=== PATIENT | female | born 1950 | race African-American/Black ===

== ENCOUNTER 2023-12-18 07:45 | Outpatient (CLI) | payer MEDICARE | END 2023-12-18 07:46 | disposition home or self-care (01) | LOC: CSHULT 07:45 | PROVIDERS: ATTEND Family Medicine | DX: I12.9 Hypertensive chronic kidney disease with stage 1 through stage 4 chronic kidney disease, or unspecified chronic kidney disease (principal); N18.9 Chronic kidney disease, unspecified; E11.22 Type 2 diabetes mellitus with diabetic chronic kidney disease | CPT/HCPCS: 76770; 93975 ==

== ENCOUNTER 2025-05-25 18:47 | Inpatient (IN) | payer MEDICARE ==
[~2025-05-25 18:47] MED LIST: Iopamidol 370 76% 100 ML VIAL ONE
[2025-05-25 19:21] LABS: #Basophils Less than 0.03 10x3/uL (0.0-0.2); #Eosinophils Less than 0.03 10x3/uL (0.0-0.5); #Monocytes 0.54 10x3/uL (0.0-1.1); #Neutrophils 4.19 10x3/uL (1.5-8.4); %Basophils 0.1 % (0.0-2.0); %Eosinophils 0.1 % (0.0-6.0); %Lymphocytes 34.8 % (18.0-47.0); %Monocytes 7.4 % (0.0-10.0); %Neutrophils 57.3 % (40.0-75.0); Hematocrit 35.0 % (34.9-44.5); Hemoglobin 11.7 g/dL (12.0-15.5); Mean Corpuscular Hemoglobin 27.3 pg (27.0-33.0); Mean Corpuscular Volume 81.6 fL (81.6-98.3); Platelet Count 210 10x3/uL (150-450); Red Blood Cell (RBC) Count 4.29 10x6/uL (3.90-5.03); White Blood Cell (WBC) Count 7.32 10x3/uL (3.5-10.5)
[2025-05-25 19:41] LABS: ALT (SGPT) 14 U/L (Less than 34); AST (SGOT) 30 U/L (11-34); Albumin 4.2 g/dL (3.1-4.5); Alkaline Phosphatase 174 U/L (40-110); Anion Gap 14 mmol/L (10-20); BUN (Urea Nitrogen) 24 mg/dL (9.8-20.1); Bilirubin, Total 0.3 mg/dL (0.3-1.2); Calc. Creatinine Clearance 0 mL/min (70-130); Calcium 9.7 mg/dL (7.8-10.44); Carbon Dioxide 21 mmol/L (23-31); Chloride 105 mmol/L (98-107); Globulin 4.5 g/dL (2.4-3.5); Glucose 116 mg/dL (83-110); Potassium 5.2 mmol/L (3.5-5.1); Sodium 135 mmol/L (136-145)
[2025-05-25 20:29] LABS: Troponin I Less than 0.010 ng/mL (< 0.028)
[2025-05-25 20:33] LABS: Glucose, Urine (Dipstick) Normal (Negative); Leukocyte Negative (Negative); Protein, Urine (Dipstick) 30 mg/dl (Neg-Trace); Specific Gravity, Urine 1.005 (1.005-1.030)
[2025-05-25 20:38] LABS: CAUTI Indications for Culture Dysuria,urgency,freq; RBC/HPF None Seen HPF (0-3); WBC/HPF None Seen HPF (0-3)
[2025-05-25 20:39] LABS: Urine Culture Reflex No No
[2025-05-25 22:41] VITALS: BMI 34.7
[2025-05-25] MEDS ORDERED: Milk Of Magnesia 30 ML UDCUP PO PRN (22:52)
[2025-05-25] MEDS ORDERED: Acetaminophen 325 MG TAB PO PRN (22:52)
[2025-05-26] MEDS: Melatonin 3 MG TAB PO PRN (00:03)
[2025-05-26 05:54] LABS: Anion Gap 12 mmol/L (10-20); BUN (Urea Nitrogen) 20 mg/dL (9.8-20.1); Calc. Creatinine Clearance 54 mL/min (70-130); Calcium 9.2 mg/dL (7.8-10.44); Carbon Dioxide 23 mmol/L (23-31); Cardiac Risk 2.5 (Less than 4.5); Chloride 108 mmol/L (98-107); Cholesterol 240 mg/dl (< 200 Desired); Glucose 121 mg/dL (83-110); HDL Cholesterol 97 mg/dL (>60 Neg Risk); LDL Cholesterol, Calculated 126 mg/dL; Magnesium 2.0 mg/dL (1.6-2.6); Potassium 4.4 mmol/L (3.5-5.1); Sodium 139 mmol/L (136-145); Triglycerides 87 mg/dL (Less than 150)
[2025-05-26] MEDS ORDERED: metFORMIN 500 MG TAB PO SCH (08:00)
[2025-05-26] MEDS: metFORMIN 500 MG TAB PO SCH (10:24)
[2025-05-26] MEDS: Citalopram 20 MG TAB PO SCH (10:29)
[2025-05-26] MEDS: Enoxaparin 40 MG (0.4 mL) SYRINGE SC SCH (10:32)
[2025-05-26] MEDS: QUEtiapine 100 MG TAB PO SCH (20:41)
[2025-05-27 12:32] VITALS: TEMP 98.4
[2025-05-27 14:52] VITALS: BP 175/81
== END 2025-05-27 16:50 | disposition home or self-care (01) | DRG 69 ==
LOC: CSHERS 18:47 → CSHTELE 21:12 → OBSVTOIN 05-27 09:06
PROVIDERS: ADMIT Family Medicine; ATTEND Student in an Organized Health Care Education/Training Program
DX: G45.9 Transient cerebral ischemic attack, unspecified (principal); N17.9 Acute kidney failure, unspecified; E11.9 Type 2 diabetes mellitus without complications; F31.9 Bipolar disorder, unspecified; E86.0 Dehydration; F41.9 Anxiety disorder, unspecified; Z79.84 Long term (current) use of oral hypoglycemic drugs; Z88.8 Allergy status to other drugs, medicaments and biological substances; Z88.0 Allergy status to penicillin; Z79.899 Other long term (current) drug therapy
CPT/HCPCS: 36415; 70450; 70496; 70498; 70551; 71045; 80048; 80053; 80061; 81001; 83036; 83735; 83880; 84484; 85025; 93005; 93306; 96372; G0378; J1650; J7120; Q9967